=== PATIENT | male | born 1955 | race African-American/Black ===

== ENCOUNTER 2016-11-29 10:04 | Day surgery (SDC) | payer BC ==
--- NOTE | ~2016-11-29 | EGD ---
EGD REPORT [facility] [address] [place] [address] NAME: GAYATRI ROBERSON : [birth year] STATUS : REG [facility]#: [id number] AGE: 61 ADM/REG DATE : 11/29/16 MR#: [id number] REPORT SERV DATE: 11/29/16 DICTATED BY: KHUSHBU PITTS DATE: 11/29/16 REPORT STATUS : Draft TRANSCRIBED BY: [facility] DATE: 11/29/16 [facility] Patient Name: Gayatri Roberson Date of : 1955 Attending MD: KHUSHBU PITTS MD Procedure Date No Time: 11/29/2016 Procedure: Colonoscopy Indications: Screening for colorectal malignant neoplasm Referring MD: PAMELA RODRIGUEZ Medicines: as per anesthesia Complications: No immediate complications. Procedure: Pre-Anesthesia Assessment: - ASA Grade Assessment: III - A patient with severe systemic disease. After I obtained informed consent, the scope was passed under direct vision. Throughout the procedure, the patient's blood pressure, pulse, and oxygen saturations were monitored continuously. The PCF [id number] was introduced through the anus and advanced to the cecum, identified by appendiceal orifice and ileocecal valve. The colonoscopy was performed without difficulty. The patient tolerated the procedure. The quality of the bowel preparation was fair. Findings: The perianal and digital rectal examinations were normal. A single medium-mouthed diverticulum was found in the sigmoid colon. There was a small lipoma, in the sigmoid colon. Internal hemorrhoids were found during endoscopy and were mild. Impression: - Diverticulosis in the sigmoid colon. - Small lipoma in the sigmoid colon. - Internal hemorrhoids. Recommendation: - Repeat colonoscopy in 10 years for surveillance. Procedure Code(s): --- Professional --- 60614, Colonoscopy, flexible, proximal to splenic flexure; diagnostic, with or without collection of specimen(s) by brushing or washing, with or without colon decompression (separate procedure) Diagnosis Code(s): --- Professional --- K64.8, Other hemorrhoids K57.30, Diverticulosis of large intestine without EGD REPORT [address] [place]. 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 All rights reserved. The codes documented in this report are preliminary and upon journeyman welder review may be revised to meet current compliance requirements. KHUSHBU PITTS MD 11/29/2016 12:50 PM This report has been signed electronically. Number of Addenda: 0 Note Initiated On: 11/29/2016 12:25 PM Scope Withdrawal Time 0 hours 8 minutes [address] [place] [id number]
[~2016-11-29 10:04] MED LIST: ASAB PO; COUMADIN10 MG PO; HYDREA PO; LIPITOR10 PO; PRIN5 PO
[2016-11-29 10:35] LABS: INTERNATIONAL NORMAL RATI 1.4 UNITS (-); PROTIME (NOT ORD) 17.2 SEC (12.0-14.5)
== END 2016-11-29 23:59 | disposition home or self-care (01) ==
LOC: DMU 10:04
PROVIDERS: Anesthesiology; Internal Medicine Gastroenterology
PROC: 0DJD8ZZ Inspection of Lower Intestinal Tract, Via Natural or Artificial Opening Endoscopic (ICD-10-PCS; principal; 2016-11-29 12:00)
DX: Z12.11 Encounter for screening for malignant neoplasm of colon (principal); K64.8 Other hemorrhoids; K57.30 Diverticulosis of large intestine without perforation or abscess without bleeding; D17.5 Benign lipomatous neoplasm of intra-abdominal organs; I10 Essential (primary) hypertension; I25.10 Atherosclerotic heart disease of native coronary artery without angina pectoris; I73.9 Peripheral vascular disease, unspecified; D45 Polycythemia vera; Z79.899 Other long term (current) drug therapy; Z79.82 Long term (current) use of aspirin; Z79.01 Long term (current) use of anticoagulants
CPT/HCPCS: 85610